=== PATIENT | male | born 1930 | race Caucasian/White ===

== ENCOUNTER 2018-05-04 10:52 | Emergency (ER) | payer MEDICARE ==
[2018-05-04] MEDS ORDERED: Sodium Chloride 0.9% 10 ML Syringe FLUSH PRN (11:03)
[2018-05-04] MEDS ORDERED: Sodium Chloride 0.9% 2.5 ML Syringe FLUSH PRN (11:03)
[2018-05-04 11:47] LABS: CHLORIDE,CL 103 mmol/L (98-107); SODIUM,NA 138 mmol/L (136-148)
[2018-05-04 17:58] VITALS: BP 165/83
--- NOTE | 2018-05-04 18:21 | EDM.PDOC ---
ED HPI GENERAL MEDICAL PROBLEM - General Chief Complaint: Neuro Symptoms/Deficits Stated Complaint: DIZZY Time Seen by Provider: 05/04/18 10:52 Source of Information: Reports: Patient History Limitations: Reports: No Limitations - History of Present Illness INITIAL COMMENTS - FREE TEXT/NARRATIVE: HISTORY AND PHYSICAL: History of present illness: [Is driven to the emergency room by his [id number] requesting a blood pressure check. He complains of feeling dizzy. He states that thishas been ongoing problem for him and he is scheduled to follow-up with his PCP, Dr. Flores next week. He is at first agreeable to be evaluated for his dizziness and he has checked into the emergency room. He denies any pain, headache, chest pain, shortness of breath, difficulty breathing, blurred vision. Appetite has been good he denies problems with urination or bowel movements.] Review of systems: As per history of present illness and below otherwise all systems reviewed and negative. Past medical history: As per history of present illness and as reviewed below otherwise noncontributory. Surgical history: As per history of present illness and as reviewed below otherwise noncontributory. Social history: No reported history of drug or alcohol abuse. Family history: As per history of present illness and as reviewed below otherwise noncontributory. Physical exam: Diagnostics: [] Therapeutics: [] Impression: [] Plan: [Prior to physical exam being completed patient dates that he does not want to be here or be evaluated and that he only came in for blood pressure check today. He is urged to be evaluated in the ER today with complaints of dizziness. He declines any evaluation. [id number] states that patient has been confused for a couple of years, since the of his first . She states that patient has had no worsening of his symptoms and believes his confusion to be baseline today. He is oriented to person place and time. He knows where he is and he has been driving without any difficulties. Sister-in- law states that she has no new concerns regarding patient's confusion and he is at his normal level today. She does not believe these findings to be concerning as they have been going on for so long. Discussed with him that his current symptoms may be a sign of a ongoing serious problem that may worsen if discharged home. He verbalized understanding of this and admits that he would like to go home without being seen. Patient signs out AMA. We reviewed that if he should change his mind he may return to the emergency room for evaluation. If his symptoms should worsen he is welcome to return to the emergency room at any time. He verbalized understanding of this discussion. Labs and EKG should be canceled.] Definitive disposition and diagnosis as appropriate pending reevaluation and review of above. headache Pain Score (Numeric/FACES): 3 - Related Data Allergies Allergy/AdvReac Type Severity Reaction Status Date / Time No Known Allergies Allergy Verified 09/10/15 12:34 Home Meds: Home Meds Blood Pressure Med? 09/10/15 [History] Cholesterol Med? 09/10/15 [History] LORazepam [Ativan] 0.5 mg PO 09/10/15 [History] Past Medical History Other Neuro History: Stroke in 2007 - Infectious Disease History Infectious Disease History: Reports: Acinetobacter ([facility]) Social & Family History - Family History Family Medical History: Noncontributory - Tobacco Use Smoking Status *Q: Unknown Ever Smoked - Recreational Drug Use Recreational Drug Use: No ED ROS GENERAL - Review of Systems Review Of Systems: ROS reveals no pertinent complaints other than HPI. ED EXAM, NEURO - Physical Exam Exam: See Below Course - Vital Signs Last Recorded V/S: Last Vital Signs Temp 97.8 F 05/04/18 10:55 Pulse 78 05/04/18 10:55 Resp 16 05/04/18 10:55 BP 165/83 H 05/04/18 10:55 Pulse Ox 97 05/04/18 10:55 - Orders/Labs/Meds Orders: Active Orders 24 hr Category Date Time Status EKG 12 Lead [EKG Documentation Completion] [RC] STAT Care 05/04/18 10:59 Active Saline Lock Insert [OM.PC] Stat Oth 05/04/18 11:03 Ordered Labs: Laboratory Tests 05/04/18 05/04/18 05/04/18 Range/Units 11:03 11:15 11:15 WBC 6.73 (4.0-11.0) K/uL RBC 5.35 (4.50-5.90) M/uL Hgb 15.2 (13.0-17.0) g/dL Hct 46.2 (38.0-50.0) % MCV 86.4 (80.0-98.0) fL MCH 28.4 (27.0-32.0) pg MCHC 32.9 (31.0-37.0) g/dL RDW Std Deviation 44.7 (28.0-62.0) fl RDW Coeff of Corinne 14 (11.0-15.0) % Plt Count 167 (150-400) K/uL MPV 11.00 (7.40-12.00) fL Neut % (Auto) 64.7 (48.0-80.0) % Lymph % (Auto) 24.2 (16.0-40.0) % [place] % (Auto) 9.8 (0.0-15.0) % Eos % (Auto) 1.2 (0.0-7.0) % Baso % (Auto) 0.1 (0.0-1.5) % Neut # (Auto) 4.4 (1.4-5.7) K/uL Lymph # (Auto) 1.6 (0.6-2.4) K/uL [place] # (Auto) 0.7 (0.0-0.8) K/uL Eos # (Auto) 0.1 (0.0-0.7) K/uL Baso # (Auto) 0.0 (0.0-0.1) K/uL Nucleated RBC % 0.0 /100WBC Nucleated RBCs # 0 K/uL INR 1.06 Sodium 138 (136-148) mmol/L Potassium 4.0 (3.5-5.1) mmol/L Chloride 103 (98-107) mmol/L Carbon Dioxide 26.8 (21.0-32.0) mmol/L BUN 19 H (7.0-18.0) mg/dL Creatinine 1.2 (0.8-1.3) mg/dL Est Cr Clr Drug Dosing TNP Estimated GFR (MDRD) 57.5 ml/min Glucose 115 H (74-106) mg/dL Calcium 8.9 (8.5-10.1) mg/dL Total Bilirubin 0.9 (0.2-1.0) mg/dL AST 13 L (15-37) IU/L ALT 21 (14-63) IU/L Alkaline Phosphatase 54 (46-116) U/L Troponin I < 0.050 (0.000-0.056) ng/mL Total Protein 7.0 (6.4-8.2) g/dL Albumin 3.5 (3.4-5.0) g/dL Globulin 3.5 (2.0-3.5) g/dL Albumin/Globulin Ratio 1.0 L (1.3-2.8) Meds: Medications Discontinued Medications Generic Name Dose Route Start Last Admin Trade Name Freq PRN Reason Stop Dose Admin Sodium Chloride 10 ml 05/04/18 11:03 Saline Flush FLUSH ASDIRECTED PRN Keep Vein Open Sodium Chloride 2.5 ml 05/04/18 11:03 Saline Flush FLUSH ASDIRECTED PRN Keep Vein Open Departure - Departure Time of Disposition: 11:00 Disposition: Against Medical Advice 07 Clinical Impression: Dizziness - Discharge Information Referrals: PCP,None [Primary Care Provider] - Forms: ED Department Discharge - My Orders Last 24 Hours: My Active Orders 05/04/18 10:59 EKG 12 Lead [EKG Documentation Completion] [RC] STAT 05/04/18 11:03 Saline Lock Insert [OM.PC] Stat - Assessment/Plan Last 24 Hours: My Active Orders 05/04/18 10:59 EKG 12 Lead [EKG Documentation Completion] [RC] STAT 05/04/18 11:03 Saline Lock Insert [OM.PC] Stat
== END 2018-05-04 11:21 | disposition left against medical advice (07) ==
LOC: MW.ED 10:52
DX: R42 Dizziness and giddiness (principal); Z79.899 Other long term (current) drug therapy
CPT/HCPCS: 36415; 80053; 84484; 85025; 85610; 93005; 99281; 99283-25